=== PATIENT | female | born 1990 | race Caucasian/White ===

== ENCOUNTER 2016-04-23 17:54 | Emergency (ER) | payer OTHER ==
[~2016-04-23] VITALS: Ht 160 cm; Wt 61.4 kg
[2016-04-23 17:57] VITALS: BP 131/86; PULSE 117; RESP 18; O2SAT 98
--- NOTE | 2016-04-23 18:09 | ED.REPORT ---
HPI- Female Date of Service Apr 23, 2016 ED Provider: Dr. Johnny German D.O. A healthy 25 year old female presents to the ED with vaginal bleeding onset two days ago. She has been spotting for the past two months but the bleeding has now increased. Associated symptoms include generalized myalgias, chills, . The patient denies abdominal pain, dysuria, or vaginal discharge. Her last menstrual period was 02/24/16 Nursing Notes Stated Complaint: STOMACH PAIN, BLEEDING, DIZZINESS, PREG UNK TIME Chief Complaint: & Delivery Nursing Notes Reviewed: Yes Allergies: Coded Allergies: No Known Allergies (Unverified , 04/23/16) General Time Seen by MD: 18:08 Chief Complaint Vaginal bleeding... (Moderate) Hx Obtained From: Patient Arrived By: Walk-in Sudden in Onset?: Yes Onset Occurred: 2 days ago Context of Onset: , 1st trimester Symptom Duration: Since onset Severity: Current: No pain currently Severity: Maximum: No pain Status: Last NL menst cycle (02/24/16), Positive - home urine HCG : 2 Para: 1 Pertinent Negative: Relieved by nothing Recent Healthcare: No recent doctor visit Similar Sx Previous: No Past Medical History Past Medical History with current 04/23/16 Past Surgical History None reported Smoking History Unknown if Ever Smoker Social History Other Social History: Lives with children Ambulatory Status Independent Review of Systems Basic Review of Systems Cardiovascular: No chest pain, No dyspnea on exertion, No orthopnea, No parox noct dyspnea Constitutional: Reports: Chills, Denies: Fever GI: Denies: Abdominal pain Female: Reports: Vaginal bleeding - abnl (During ), Denies: Dysuria, Vaginal discharge Musculoskeletal: Reports: Myalgia (Generalized), Denies: Back pain Skin: Denies Diaphoresis, Denies Rash Neurologic: Denies: Lightheaded, Slurred speech Complete sys rev & neg: except as marked. Physical Exam Initial Vital Signs Vital Signs (First) Date Time Temp Pulse Resp B/P Pulse Ox O2 Delivery O2 Flow Rate FiO2 04/23/16 17:57 36.5 117 18 131/86 98 Room Air Initial VS: Reviewed Head / Eyes: Atraumatic, Normocephalic ENT: Conjunctiva normal, No scleral icterus Neck: Supple, Full range of motion Respiratory: Breath sounds normal, Clear to auscultation, No respiratory distress Abdomen / GI: Soft, Non-tender Skin: Warm, Dry, No cyanosis Neurologic: Alert, Oriented, Nonfocal Psychiatric: Mood/affect normal, Behavior normal, Normal thought content General/Constitutional: Awake, Alert, No acute distress Cardiovascular: Heart rate NL, Regular rhythm Heart Sounds / Murmur: Positive: Systolic murmur present.. (Faint, ejection) Interpretation & Diagnostics Lab Results Interpretation Result Diagram: 04/23/16 1815 04/23/16 181 Test 04/23/16 18:15 04/23/16 18:55 White Blood Count 5.8th/mm3 (3.8-10.1) Red Blood Count 4.59mil/mm3 (3.90-5.20) Hemoglobin 13.8g/dL (12.0-15.6) Hematocrit 41.0% (35.0-46.0) Mean Corpuscular Volume 89.3fL (81-100) Mean Corpuscular Hemoglobin 30.1pg (27.0-35.0) Mean Corpuscular Hemoglobin Concent 33.7% (32.0-37.0) Red Cell Distribution Width 13.4% (12.3-15.4) Platelet Count 238bil/L (150-400) Hold Purple Top Tube Received (Received) Hold Blue Top Tube Received (Received) Sodium Level 138mEq/L (134-144) Potassium Level 4.0mEq/L (3.5-5.2) Chloride Level 100mEq/L (97-108) Carbon Dioxide Level 22mmol/L (18-29) Blood Urea Nitrogen 14mg/dL (6-20) Creatinine 0.50mg/dL (0.57-1.00) Estimat Glomerular Filtration Rate 217mL/min (>59) Glucose Level 88mg/dL (60-99) Calcium Level 9.2mg/dL (8.5-10.1) Total Bilirubin 0.2mg/dL (0.0-1.2) Aspartate Amino Transf (AST/SGOT) 22U/L (0-50) Alanine Aminotransferase (ALT/SGPT) 10U/L (0-32) Alkaline Phosphatase 50U/L (25-150) Total Protein 7.9g/dL (6.4-8.4) Albumin 4.5g/dL (3.4-5.0) HCG Beta Subunit 535.3mIU/mL Hold [place] Top Tube Received (Received) Hold Chakraborty Top Tube Received (Received) Hold Urine Received (Received) US Focused OB PROCEDURE: US PELVIC SONOGRAM + TRANSVAGINAL SONOGRAM IMPRESSION: 1. No intrauterine identified. 2. Complex right adnexal cyst. 3. No definite ectopic identified, however in a patient with positive test and no intrauterine gestation, possibility of early ectopic cannot be excluded. Recommend correlation with serial beta hCGs, close clinical observation and followup ultrasound. Dictated by: Ailyn Byrne MD, PhD on 04/23/2016 at 21:17 Approved by: Ailyn Byrne MD, PhD on 04/23/2016 at 21:23 Exam Performed by: Allied health pract Exam Interpreted by: Radiologist Re-Eval/Medical Decision Med Decision/Clinical Course Healthy 25-year-old female first trimester . Some vaginal bleeding and abdominal cramping. She also has a subjective fever. No source of sepsis found and physical exam. I recommended a flu swab evidently she declined. Belly was very benign. Ultrasound however showed an empty uterus and a complex ovarian cyst on the right. It is probably too early to determine if this is going to be an intrauterine or she is in the throes of a miscarriage or possibly an ectopic. Either way out patient follow-up is essential. I consulted with Dr. Gutierrez and she will call the office tomorrow for follow-up. She is discharged in stable condition She was mildly tachycardic. She attributes this to her anxiety. She does not have any palpitations, any chest pain or shortness of breath. Re-Evaluation/Progress #1: Time of Eval: 20:52 Patient Status: Condition improved Re-Evaluation/Progress Note: Heartfelt conversation discussing US results with patient and her partner Re-Evaluation/Progress #2: Time of Eval: 21:42 Patient Status: Condition improved Re-Evaluation/Progress Note: Discussed with patient US and lab results, diagnosis, and plan for discharge. Follow-up and return to the ER instructions given. Patient agrees with plan for care and all questions were addressed. Consultation : Referral / Consult Name: Romain Gutirerez MD Consulted With: Primary care physician Call Returned at: 21:34 Automotive Technician: Will see in office, Agrees with eval, Agrees with plan Note: Patient can call tomorrow to make an appointment Counseled Regarding: Diagnosis, Lab results, Need for follow-up, When/why to return to ED Discharge & Departure Impression: Primary Impression: Vaginal bleeding in Trimester: first trimester Qualified Code: O46.91 - Antepartum hemorrhage, unspecified, first trimester Disposition: Home Discharge Condition All VS Reviewed: Yes Condition: Stable Patient Instructions: Threatened Miscarriage (ED) Additional Instructions: Thank you for entrusting us with your care. Call Dr. Gutierrez's office tomorrow. I have spoken with him and he will see you in clinic for a recheck. I recommend serial quantitative hCGs and a repeat ultrasound, which can be scheduled with Dr. Gutierrez. Return to the ER with any new or worsening symptoms including sudden severe pain or lightheadedness. Referrals: Romain Gutierrez MD [facility] Scribe Attestation Portions of this note were transcribed by Felicia Thompson. I, Dr. German, personally performed the history, physical exam, and medical decision-making; I reviewed and confirmed the accuracy of the information in the transcribed note. Signed by: Song Blunt, 04/23/2016, 22:04 copies to: Romain Gutierrez MD; [facility] Johnny German DO Apr 23, 2016 18:09 FELICIA THOMPSON Apr 23, 2016 19:27
[2016-04-23 18:34] LABS: Mean Corpuscular Hemoglobin 30.1 pg (27.0-35.0); Mean Corpuscular Volume 89.3 fL (81-100)
[2016-04-23] MEDS ORDERED: 0.9% Sodium Chloride 1,000 ML IV SCH (19:25)
[2016-04-23 20:00] VITALS: BP 118/78; PULSE 109; RESP 18; O2SAT 98
--- NOTE | 2016-04-23 21:24 | DRSVH ---
PROCEDURE: US PELVIC SONOGRAM + TRANSVAGINAL SONOGRAM INDICATIONS: pelvic pain, dizzy, , TECHNIQUE: Real-time scanning was performed of the pelvic organs, with image documentation. Additional endovagi nal scanning was necessary due to incomplete visualization of the adnexal and endometrial structures by transabdominal scanning. COMPARISON: None. FINDINGS: Transabdominal scanning: Limited scanning through the kidneys shows no hydronephrosis. No pathologi c free abdominal or pelvic fluid. Endovaginal scanning: Uterus: Uterus is normal in size at 9.2 x 3.4 x 4.6 cm. The endometrium measures 12.4 mm in combine d thickness. No intrauterine identified. Ovaries: Right adnexa measures 5.7 x 2.4 x 2.9 cm. There is a 2.0 x 2.3 x 1.9 cm complex cyst in th e right adnexa. Echogenic material is noted within the complex right adnexal cyst. Left adnexa stephane ures 3.5 x 2.2 x 2.4 cm. Adnexa sonographically normal. IMPRESSION: 1. No intrauterine identified. 2. Complex right adnexal cyst. 3. No definite ectopic identified, however in a patient with positive test and n o intrauterine gestation, possibility of early ectopic cannot be excluded. Recommend corre lation with serial beta hCGs, close clinical observation and followup ultrasound. Dictated by: Ailyn Byrne MD, PhD on 04/23/2016 at 21:17 Approved by: Ailyn Byrne MD, PhD on 04/23/2016 at 21:23
[2016-04-23 22:01] VITALS: BP 104/58; PULSE 110; RESP 18; O2SAT 98
== END 2016-04-23 22:00 | disposition home or self-care (01) ==
LOC: SED 17:54
DX: O46.91 Antepartum hemorrhage, unspecified, first trimester (principal); Z3A.01 Less than 8 weeks gestation of pregnancy
CPT/HCPCS: 36415; 76830; 76856; 80053; 84702; 85027; 96360; 99285; J7030

== ENCOUNTER 2016-09-24 21:44 | Emergency (ER) | payer MEDICAID, OTHER ==
[~2016-09-24] VITALS: Ht 160 cm; Wt 59.0 kg
[2016-09-24 21:52] VITALS: BP 150/76; PULSE 86; RESP 16; O2SAT 99
--- NOTE | 2016-09-24 23:42 | ED.REPORT ---
HPI-Rash / Abscess Date of Service Sep 24, 2016 ED Provider: Dr. Dunn Pt is a healthy 25 y/o female presenting to the ED c/o left forearm abscess onset 3 days ago. The abscess began as a small spot and has increased in size in the past few days and become quite painful. Pt denies fever, chills, nausea, vomiting, numbness. She has no history of abscess and denies drug use. Nursing Notes Stated Complaint: LEFT ARM THROBBING/SPIDER BITE Chief Complaint: Skin Rash/Abscess Nursing Notes Reviewed: Yes Allergies: Coded Allergies: No Known Allergies (Unverified , 09/24/16) General Time Seen by MD: 23:41 Chief Complaint Abscess Hx Obtained From: Patient Arrived By: Walk-in Onset Occurred: 3 days ago Symptom Duration: Since onset Location: : Forearm Quality: Painful Severity: Current: Moderate Severity: Maximum: Moderate Similar Sx Previous: No Past Medical History Past Medical History Healthy Past Surgical History None reported Smoking History Unknown if Ever Smoker Social History Alcohol Use: Denies alcohol use Drug Use: Denies drug use Other Social History: Lives with children Ambulatory Status Independent Review of Systems Constitutional: Denies: Chills, Fever Respiratory: Denies: Non-productive cough, Shortness of breath Cardiovascular: Denies: Chest pain, Dyspnea on exertion GI: Denies: Abdominal pain, Nausea, Vomiting Musculoskeletal: Reports: Extremity pain, Extremity swelling Skin: Reports Rash, Reports Swelling, Denies Diaphoresis Complete sys rev & neg: except as marked. Physical Exam Initial Vital Signs Vital Signs (First) Date Time Temp Pulse Resp B/P Pulse Ox O2 Delivery O2 Flow Rate FiO2 09/24/16 21:52 36.4 86 16 150/76 99 Initial VS: Reviewed, Vital signs normal Head / Eyes: Atraumatic, Normocephalic, PERRL ENT: Mucous membranes moist, Conjunctiva normal, No scleral icterus Neck: Supple, Full range of motion Respiratory: Breath sounds normal, Clear to auscultation, No respiratory distress Cardiovascular: Regular rate & rhythm, Heart sounds normal, Intact distal pulses Abdomen / GI: Soft, No distention Neurologic: Alert, Oriented, Nonfocal Psychiatric: Mood/affect normal, Behavior normal, Normal thought content General/Constitutional: Awake, Alert, No acute distress, Well appearing, Cooperative, Not toxic appearing Skin: Atraumatic, Warm, Dry, Intact Abscess Notes: Left forearm small pustule with surrounding erythem and swelling, about 2-3 cm in size Procedures Incision & Drainage Abscess Time: 00:10 Procedure Performed by: ED physician Consent / Setup / Site Prep: Consent from patient, Hand hygiene observed, Stand sterile technique, Sterile drapes applied Location of Abscess: Left forearm Skin Preparation Agent: Shurclens Local Anesthesia: Lidocaine w epi 1% Incised Abscess with Scalpel: #11 Pus Drained: Small, Purulent discharge Irrigation: Copious Post-Procedure / Complications: Dressing applied, No complications, Condition improved, Tolerated procedure well, Patient stable Re-Eval/Medical Decision Med Decision/Clinical Course 25-year-old with a small follicular abscess on the forearm, drained of a small amount of purulent material, and she will be started on trimethoprim sulfamethoxazole DS. Warm compresses. Recheck as needed. Re-Evaluation/Progress : Time of Eval: 00:19 Patient Status: Condition improved, Moderate relief, Pain improved Re-Evaluation/Progress Note: Pt rechecked. Procedure performed with no complications. She is feeling better now. Informed pt of plan for treatment. Pt understands and agrees with plan for treatment. F/U instructions and RTER warnings given. All questions addressed. Counseled Regarding: Diagnosis, Need for follow-up, When/why to return to ED Discharge & Departure Impression: Primary Impression: Cellulitis and abscess of upper arm and forearm Disposition: Home Discharge Condition All VS Reviewed: Yes Condition: Improved Patient Instructions: Abscess (ED) Additional Instructions: Warm compresses. Elevation. Daily dressing change. Trimethoprim sulfamethoxazole DS (Septra DS) 1 pill twice daily for 10 days, #20 dispensed. Tylenol and/or ibuprofen as needed for pain. Recheck in 2-3 days if not improving. Call me at [phone] between the hours of 9 PM and 6 AM for the next couple nights if you have any questions or concerns. Referrals: [facility] Scribe Attestation Portions of this note were transcribed by Vishal Reyes. I, Dr. Dunn personally performed the history, physical exam and medical decision-making; I reviewed and confirmed the accuracy of the information in the transcribed note. Signed by Song Bell, 09/25/16 - 0010 Enio Dunn MD Sep 24, 2016 23:42 VISHAL REYES Sep 25, 2016 00:01
[2016-09-25 01:04] VITALS: BP 135/77; PULSE 76; RESP 16; O2SAT 99
[2016-09-25] MEDS ORDERED: _Trimethoprim-Sulfa 160/800 mg Tablet PO SCH (08:30)
== END 2016-09-25 01:05 | disposition home or self-care (01) ==
LOC: SED 21:47
DX: L03.114 Cellulitis of left upper limb (principal); L02.414 Cutaneous abscess of left upper limb

== ENCOUNTER 2016-11-29 02:05 | Emergency (ER) | payer OTHER ==
[~2016-11-29] VITALS: Ht 160 cm; Wt 61.4 kg
[2016-11-29 02:16] VITALS: BP 137/75; PULSE 76; RESP 18; O2SAT 99
--- NOTE | 2016-11-29 02:22 | ED.REPORT ---
HPI-General Illness Date of Service Nov 29, 2016 ED Provider: Nursing Notes Stated Complaint: BACK PAIN Chief Complaint: Back Pain or Injury Allergies: Coded Allergies: No Known Allergies (Unverified , 11/29/16) Scheduled PRN Cyclobenzaprine (Cyclobenzaprine) 10 Mg Tablet 10 MG PO TID PRN PRN Spasm Past Medical History Past Medical History Healthy Past Surgical History None reported Smoking History Unknown if Ever Smoker Social History Alcohol Use: Denies alcohol use Drug Use: Denies drug use Other Social History: Lives with children Ambulatory Status Independent Physical Exam Vital Signs Vital Signs Date Time Temp Pulse Resp B/P Pulse Ox O2 Delivery O2 Flow Rate FiO2 11/29/16 02:16 36.4 76 18 137/75 99 Room Air Discharge & Departure Referrals: [facility] (PCP) Jacob Jordan MD Nov 29, 2016 02:22 MIRLANDE CORREIA Nov 29, 2016 02:33 [facility] (PCP) Jacob Jordan MD Nov 29, 2016 02:22 MIRLANDE CORREIA Nov 29, 2016 02:33
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
[2016-11-29] MEDS ORDERED: CYCL10TA9 PO (02:38)
== END 2016-11-29 02:48 | disposition home or self-care (01) ==
LOC: SED 02:05
DX: S29.012A Strain of muscle and tendon of back wall of thorax, initial encounter (principal); X50.9XXA Other and unspecified overexertion or strenuous movements or postures, initial encounter; Y93.89 Activity, other specified; Y92.89 Other specified places as the place of occurrence of the external cause; Y99.8 Other external cause status; Z87.828 Personal history of other (healed) physical injury and trauma